=== PATIENT | male | born 1950 | race Caucasian/White ===

== ENCOUNTER 2018-03-17 10:14 | Inpatient (IN) ==
[2018-03-17] MEDS ORDERED: ACETAMINOPHEN 325 MG TABLET PO PRN (12:41)
[2018-03-17] MEDS ORDERED: MAGNESIUM SULF RIDER 2 GM in PREMIX 1 EACH IV PRN (12:41)
[2018-03-17] MEDS ORDERED: ONDANSETRON 4 MG/2 ML VIAL IV PRN (12:41)
[2018-03-17] MEDS ORDERED: ZALEPLON 5 MG CAPSULE PO PRN (12:41)
[2018-03-17] MEDS ORDERED: MORPHINE 4 MG/1 ML VIAL IV PRN (12:41)
[2018-03-17] MEDS ORDERED: DOCUSATE SODIUM 100 MG CAPSULE PO PRN (12:41)
[2018-03-17] MEDS ORDERED: MAGNESIUM SULF RIDER 4 GM in PREMIX 1 EACH IV PRN (12:41)
[2018-03-17] MEDS ORDERED: GLUCAGON 1 MG VIAL IM PRN (12:51)
[2018-03-17] MEDS ORDERED: DEXTROSE 50% 25 GM/50 ML VIAL IV PRN (12:51)
[2018-03-17 13:44] LABS: Basophils # 0.1 10*3/uL (0.0-0.2); Basophils % 0.4 % (0.0-0.8); Eosinophils # 0.3 10*3/uL (0.0-0.87); Eosinophils % 2.7 % (0.00-10.9); Hematocrit 40.6 VOL% (42.0-52.0); Hemoglobin 13.7 GM/DL (14.0-18.0); Immature Granulocytes % 0.4 %; Immature Granulocytes Absolute 0.05 #; Lymphocytes # 1.1 10*3/uL (1.4-4.0); Lymphocytes % 8.8 % (21.2-54.2); Mean Corpuscular HGB Conc 33.7 GM/DL (32-36); Mean Corpuscular Hemoglobin 31 PG (27-34); Mean Corpuscular Volume 93.1 FL (87-102); Mean Platelet Volume 10.4 FL (9.6-12.0); Monocytes # 0.7 10*3/uL (0.11-0.8); Monocytes % 6.2 % (1.7-12.7); Neutrophils # 9.7 10*3/uL (1.4-7.4); Neutrophils % 81.5 % (38.7-73.9); Platelet Count 212 T/CUMM (130-400); Red Blood Count 4.36 MC/CUMM (3.8-5.5); Red Cell Distribution Width 15.4 % (9.3-17.3)
[2018-03-17 14:17] LABS: Troponin I 0.135 NG/ML (0.00-0.045)
[2018-03-17 14:23] LABS: Albumin 2.6 G/DL (3.4-5.0); Bilirubin,Total 0.5 MG/DL (0.2-1.0); Calcium 9.3 MG/DL (8.5-10.1); Potassium 4.1 MMOL/L (3.5-5.1)
[2018-03-17] MEDS: INSULIN REGULAR 100 UNIT/ML SUBCUT SCH ×2 (16:35→21:26)
[2018-03-17] MEDS: ASPIRIN EC 81 MG TABLET PO SCH (16:35)
[2018-03-17 16:39] LABS: Troponin I 0.121 NG/ML (0.00-0.045)
[2018-03-17 20:14] LABS: Troponin I 0.092 NG/ML (0.00-0.045)
[2018-03-17 20:40] LABS: Apearance,Urine CLEAR (Clear); Bilirubin,Urine Negative (Negative); Blood, Urine Small mg/dL (Negative); Glucose,Urine (UA) Negative (Negative); Ketones,Urine Negative (Negative); Mucus,Urine Occasional /LPF (Occasional); Nitrite,Urine Negative (Negative); Protein,Urine 30 MG/DL; RBC,Urine 1 /HPF (0-4); Urine Color Yellow (Yellow); Urine Specific Gravity 1.008 (1.001-1.035); Urine Urobilinogen < 2.0 EU/DL (0.2-1.0); WBC,Urine 1 /HPF (0-6)
[2018-03-17] MEDS ORDERED: ENOXAPARIN 30 MG/0.3 ML SYRINGE SUBCUT SCH (21:00)
[2018-03-18 05:50] LABS: Basophils % 0.3 % (0.0-0.8); Eosinophils # 0.2 10*3/uL (0.0-0.87); Eosinophils % 1.5 % (0.00-10.9); Hematocrit 41.3 VOL% (42.0-52.0); Hemoglobin 13.9 GM/DL (14.0-18.0); Immature Granulocytes % 0.3 %; Immature Granulocytes Absolute 0.04 #; Lymphocytes # 0.9 10*3/uL (1.4-4.0); Lymphocytes % 7.3 % (21.2-54.2); Mean Corpuscular HGB Conc 33.7 GM/DL (32-36); Mean Corpuscular Hemoglobin 31 PG (27-34); Mean Platelet Volume 10.6 FL (9.6-12.0); Monocytes # 0.8 10*3/uL (0.11-0.8); Monocytes % 6.7 % (1.7-12.7); Neutrophils # 9.8 10*3/uL (1.4-7.4); Neutrophils % 83.9 % (38.7-73.9); Platelet Count 241 T/CUMM (130-400); Red Blood Count 4.44 MC/CUMM (3.8-5.5); Red Cell Distribution Width 15.4 % (9.3-17.3); White Blood Count 11.7 T/CUMM (4-12)
[2018-03-18 06:37] LABS: Immunoglobulin A (Chem) 120 MG/DL (70-400); Immunoglobulin G (Chem) 563 MG/DL (700-1600); Immunoglobulin M (Chem) 37 MG/DL (40-230)
[2018-03-18 06:40] LABS: Calcium 9.3 MG/DL (8.5-10.1); Osmolality,Calculated 308.2 MOS/KG (273-304); Potassium 3.4 MMOL/L (3.5-5.1)
[2018-03-18 07:03] LABS: Albumin 2.6 G/DL (3.4-5.0); Bilirubin,Total 1.2 MG/DL (0.2-1.0); Calcium 9.2 MG/DL (8.5-10.1); Total Protein 7.1 G/DL (6.4-8.3)
[2018-03-18 07:04] LABS: Osmolality,Calculated 310.1 MOS/KG (273-304); Potassium 3.4 MMOL/L (3.5-5.1); Risk Ratio 4.94; VLDL CHOLESTEROL 39.2 MG/DL
[2018-03-18] MEDS ORDERED: PANTOPRAZOLE 40 MG TABLET PO SCH (09:00)
[2018-03-18 09:26] LABS: Albumin (SPE) 3.8 G/DL (3.2-5.3); Alpha 1 (SPE) 0.4 G/DL (0.1-0.4); Alpha 1 (SPE) Rel % 5.8 %; Alpha 2 (SPE) 1.2 G/DL (0.4-1.0); Beta (SPE) Rel % 14.7 %; Gamma (SPE) 0.5 G/DL (0.7-1.7); Gamma (SPE) Rel % 7.5 %
[2018-03-18 09:42] LABS: Random Urine Protein (Bench) 52 MG/DL (<11.9)
[2018-03-18] MEDS ORDERED: ATORVASTATIN 20 MG TABLET PO SCH (10:30)
[2018-03-18] MEDS: INSULIN REGULAR 100 UNIT/ML SUBCUT SCH ×2 (10:52→12:53)
[2018-03-18] MEDS: ASPIRIN EC 81 MG TABLET PO SCH (10:54)
[2018-03-18 12:27] VITALS: BP 146/71
[2018-03-18] MEDS ORDERED: FUROSEMIDE 80 MG TABLET PO SCH (16:00)
[2018-03-18] MEDS ORDERED: DULoxetine 30 MG CAPSULE PO SCH (21:00)
[2018-03-18] MEDS ORDERED: ASCORBIC ACID 500 MG TABLET PO SCH (21:00)
[2018-03-19] MEDS ORDERED: TAMSULOSIN 0.4 MG CAPSULE PO SCH (08:00)
[2018-03-19] MEDS ORDERED: POTASSIUM CHLORIDE 10 MEQ TABLET PO SCH (09:00)
[2018-03-19] MEDS ORDERED: AMITRIPTYLINE 50 MG TABLET PO SCH (09:00)
[2018-03-19] MEDS ORDERED: metOLazone 5 MG TABLET PO SCH (09:00)
[2018-03-19] MEDS ORDERED: ISOSORBIDE MONONITRATE 30 MG TABLET PO SCH (09:00)
[2018-03-19] MEDS ORDERED: FINASTERIDE 5 MG TABLET PO SCH (09:00)
[2018-03-19] MEDS ORDERED: BIOTIN 5000 MCG PO SCH (09:00)
[2018-03-19] MEDS ORDERED: ALLOPURINOL 100 MG TABLET PO SCH (09:00)
[2018-03-19] MEDS ORDERED: SPIRONOLACTONE 25 MG TABLET PO SCH (09:00)
[2018-03-19] MEDS ORDERED: DOCUSATE SODIUM 100 MG CAPSULE PO SCH (09:00)
[2018-03-19] MEDS ORDERED: CARVEDILOL 12.5 MG TABLET PO SCH (09:00)
== END 2018-03-18 15:55 | disposition home or self-care (01) | DRG 683 ==
LOC: N.2W → N.TELES 13:41
PROVIDERS: ADMIT Internal Medicine Cardiovascular Disease; ATTEND Internal Medicine Cardiovascular Disease

== ENCOUNTER 2018-05-15 10:43 | Observation (INO) ==
[2018-05-15] MEDS ORDERED: FUROSEMIDE 100 MG/10 ML VIAL IV STA (11:16)
[2018-05-15 11:42] LABS: ABG Base Excess 7.7 MMOL/L (-2.5-2.5); ABG HCO3 31.5 MMOL/L (20-26); ABG Oxygen Saturation 96.9 % (95-100); ABG PCO2 36.5 MM HG (35-48); ABG PH 7.533 (7.35-7.45); ABG PO2 79.8 MM HG (80-95)
[2018-05-15 11:57] LABS: Basophils # 0.1 10*3/uL (0.0-0.2); Basophils % 0.4 % (0.0-0.8); Eosinophils # 0.3 10*3/uL (0.0-0.87); Eosinophils % 2.9 % (0.00-10.9); Hematocrit 37.7 VOL% (42.0-52.0); Hemoglobin 12.8 GM/DL (14.0-18.0); Immature Granulocytes Absolute 0.11 #; Lymphocytes # 1.6 10*3/uL (1.4-4.0); Lymphocytes % 13.9 % (21.2-54.2); Mean Corpuscular Hemoglobin 31 PG (27-34); Mean Corpuscular Volume 91.7 FL (87-102); Mean Platelet Volume 10.4 FL (9.6-12.0); Monocytes # 0.8 10*3/uL (0.11-0.8); Monocytes % 7.3 % (1.7-12.7); Neutrophils # 8.4 10*3/uL (1.4-7.4); Neutrophils % 74.5 % (38.7-73.9); Platelet Count 173 T/CUMM (130-400); Red Blood Count 4.11 MC/CUMM (3.8-5.5); Red Cell Distribution Width 15.9 % (9.3-17.3); White Blood Count 11.2 T/CUMM (4-12)
[2018-05-15 12:23] LABS: Albumin 3.1 G/DL (3.4-5.0); Bilirubin,Total 0.5 MG/DL (0.2-1.0); Calcium 9.2 MG/DL (8.5-10.1); Osmolality,Calculated 306.4 MOS/KG (273-304); Potassium 2.9 MMOL/L (3.5-5.1); Total Protein 6.7 G/DL (6.4-8.3)
[2018-05-15] MEDS ORDERED: DEXTROSE 50% 25 GM/50 ML SYRINGE IV ONE (12:26)
[2018-05-15] MEDS ORDERED: DEXTROSE 50% 25 GM/50 ML VIAL IV STA (12:33)
[2018-05-15 14:03] LABS: Apearance,Urine CLEAR (Clear); Bilirubin,Urine Negative (Negative); Blood, Urine Negative (Negative); Glucose,Urine (UA) Negative (Negative); Hyaline Casts,Urine 1 /LPF (0-3); Ketones,Urine Negative (Negative); Mucus,Urine Occasional /LPF (Occasional); Nitrite,Urine Negative (Negative); Protein,Urine 100 MG/DL; RBC,Urine 1 /HPF (0-4); Urine Color Yellow (Yellow); Urine Urobilinogen < 2.0 EU/DL (0.2-1.0); WBC,Urine <1 /HPF (0-6)
[2018-05-15] MEDS ORDERED: GLUCAGON 1 MG VIAL IM PRN (14:35)
[2018-05-15] MEDS ORDERED: ACETAMINOPHEN 325 MG TABLET PO PRN (14:35)
[2018-05-15] MEDS ORDERED: ONDANSETRON 4 MG/2 ML VIAL IV PRN (14:35)
[2018-05-15] MEDS ORDERED: DEXTROSE 50% 25 GM/50 ML VIAL IV PRN (14:35)
[2018-05-15] MEDS ORDERED: NITROGLYCERIN SL 0.4 MG TABLET SL PRN (14:39)
[2018-05-15] MEDS ORDERED: FUROSEMIDE 40 MG/4 ML VIAL IV ONE (14:39)
[2018-05-15] MEDS ORDERED: OFLOXACIN 0.3% OPH SOLN 10 ML BOTTLE RIGHT EYE SCH (17:00)
[2018-05-15] MEDS ORDERED: prednisoLONE ACETATE 1% OPH SUSP 5 ML BOTTLE RIGHT EYE SCH (17:00)
[2018-05-15] MEDS ORDERED: ATROPINE 1 % OPH SOLN 5 ML BOTTLE RIGHT EYE SCH (17:00)
[2018-05-15] MEDS: ENOXAPARIN 30 MG/0.3 ML SYRINGE SUBCUT SCH (17:05)
[2018-05-15] MEDS: INSULIN LISPRO 100 UNIT/ML SUBCUT SCH ×2 (17:25→21:03)
[2018-05-15] MEDS: AMITRIPTYLINE 50 MG TABLET PO SCH (18:03)
[2018-05-15] MEDS: metOLazone 5 MG TABLET PO SCH (18:03)
[2018-05-15] MEDS: TAMSULOSIN 0.4 MG CAPSULE PO SCH (18:03)
[2018-05-15] MEDS: ISOSORBIDE MONONITRATE 30 MG TABLET PO SCH (18:03)
[2018-05-15] MEDS: ALLOPURINOL 100 MG TABLET PO SCH (18:04)
[2018-05-15] MEDS: ASPIRIN EC 81 MG TABLET PO SCH (18:04)
[2018-05-15] MEDS: NITROGLYCERIN 2% OINT 1 INCH/GM PACK TOP SCH (18:05)
[2018-05-15] MEDS: CILOSTAZOL 50 MG TABLET PO SCH (21:00)
[2018-05-15] MEDS: POTASSIUM CHLORIDE 20 MEQ TABLET PO SCH (21:00)
[2018-05-15] MEDS: busPIRone 10 MG TABLET PO PRN (21:00)
[2018-05-15] MEDS: ASCORBIC ACID 500 MG TABLET PO SCH (21:00)
[2018-05-15] MEDS: CARVEDILOL 12.5 MG TABLET PO SCH (21:00)
[2018-05-15] MEDS: carBAMazepine 200 MG TABLET PO SCH (21:00)
[2018-05-15] MEDS: DOCUSATE SODIUM 100 MG CAPSULE PO SCH (21:01)
[2018-05-15 21:15] LABS: Troponin I 0.151 NG/ML (0.00-0.045)
[2018-05-16] MEDS: NITROGLYCERIN 2% OINT 1 INCH/GM PACK TOP SCH ×4 (00:18→18:02)
[2018-05-16] MEDS: INSULIN LISPRO 100 UNIT/ML SUBCUT SCH ×4 (07:48→20:42)
[2018-05-16] MEDS ORDERED: BIOTIN 5000 MCG PO SCH (09:00)
[2018-05-16] MEDS: ROSUVASTATIN 20 MG TABLET PO SCH (09:06)
[2018-05-16] MEDS: DOCUSATE SODIUM 100 MG CAPSULE PO SCH ×2 (09:06→20:40)
[2018-05-16] MEDS: CARVEDILOL 12.5 MG TABLET PO SCH (09:06)
[2018-05-16] MEDS: ASCORBIC ACID 500 MG TABLET PO SCH ×2 (09:06→20:40)
[2018-05-16] MEDS: POTASSIUM CHLORIDE 20 MEQ TABLET PO SCH ×2 (09:06→20:40)
[2018-05-16] MEDS: FINASTERIDE 5 MG TABLET PO SCH (09:06)
[2018-05-16] MEDS: FUROSEMIDE 40 MG/4 ML VIAL IV SCH ×2 (09:06→20:41)
[2018-05-16] MEDS: carBAMazepine 200 MG TABLET PO SCH ×2 (09:06→20:40)
[2018-05-16] MEDS: PANTOPRAZOLE 40 MG TABLET PO SCH (09:06)
[2018-05-16] MEDS: CILOSTAZOL 50 MG TABLET PO SCH ×2 (09:12→20:40)
[2018-05-16] MEDS: busPIRone 10 MG TABLET PO PRN (10:47)
[2018-05-16] MEDS: ENOXAPARIN 30 MG/0.3 ML SYRINGE SUBCUT SCH (16:04)
[2018-05-16] MEDS: TAMSULOSIN 0.4 MG CAPSULE PO SCH (16:05)
[2018-05-16] MEDS: ASPIRIN EC 81 MG TABLET PO SCH (18:01)
[2018-05-16] MEDS: ISOSORBIDE MONONITRATE 30 MG TABLET PO SCH (18:01)
[2018-05-16] MEDS: AMITRIPTYLINE 50 MG TABLET PO SCH (18:01)
[2018-05-16] MEDS: metOLazone 5 MG TABLET PO SCH (18:01)
[2018-05-16] MEDS: ALLOPURINOL 100 MG TABLET PO SCH (18:01)
[2018-05-16] MEDS: NEBIVOLOL 5 MG TABLET PO SCH (20:40)
[2018-05-16] MEDS: busPIRone 10 MG TABLET PO SCH (20:40)
[2018-05-16] MEDS: MORPHINE 4 MG/1 ML VIAL IV PRN (23:08)
[2018-05-17] MEDS: NITROGLYCERIN 2% OINT 1 INCH/GM PACK TOP SCH ×4 (00:16→17:57)
[2018-05-17] MEDS ORDERED: DEXTROSE 50% 25 GM/50 ML SYRINGE IV ONE (03:08)
[2018-05-17 05:19] LABS: Basophils % 0.3 % (0.0-0.8); Eosinophils # 0.3 10*3/uL (0.0-0.87); Eosinophils % 2.5 % (0.00-10.9); Hematocrit 35.4 VOL% (42.0-52.0); Hemoglobin 12.2 GM/DL (14.0-18.0); Immature Granulocytes % 0.5 %; Immature Granulocytes Absolute 0.06 #; Lymphocytes # 0.9 10*3/uL (1.4-4.0); Mean Corpuscular HGB Conc 34.5 GM/DL (32-36); Mean Corpuscular Hemoglobin 32 PG (27-34); Mean Corpuscular Volume 91.9 FL (87-102); Mean Platelet Volume 10.9 FL (9.6-12.0); Monocytes # 0.7 10*3/uL (0.11-0.8); Monocytes % 6.2 % (1.7-12.7); Neutrophils # 9.2 10*3/uL (1.4-7.4); Neutrophils % 82.5 % (38.7-73.9); Platelet Count 139 T/CUMM (130-400); Red Blood Count 3.85 MC/CUMM (3.8-5.5); Red Cell Distribution Width 15.9 % (9.3-17.3); White Blood Count 11.1 T/CUMM (4-12)
[2018-05-17 05:44] LABS: Albumin 2.8 G/DL (3.4-5.0); Bilirubin,Total 0.6 MG/DL (0.2-1.0); Calcium 8.8 MG/DL (8.5-10.1); Osmolality,Calculated 297.2 MOS/KG (273-304); Potassium 2.8 MMOL/L (3.5-5.1); Total Protein 6.7 G/DL (6.4-8.3)
[2018-05-17] MEDS ORDERED: POTASSIUM CHLORIDE RIDER 10 MEQ in PREMIX 1 EACH IV PRN (06:15)
[2018-05-17] MEDS: POTASSIUM CHLORIDE 20 MEQ TABLET PO PRN ×2 (06:36→12:43)
[2018-05-17] MEDS: carBAMazepine 200 MG TABLET PO SCH ×2 (09:24→21:40)
[2018-05-17] MEDS: ROSUVASTATIN 20 MG TABLET PO SCH (09:24)
[2018-05-17] MEDS: FINASTERIDE 5 MG TABLET PO SCH (09:25)
[2018-05-17] MEDS: CILOSTAZOL 50 MG TABLET PO SCH ×2 (09:25→21:40)
[2018-05-17] MEDS: busPIRone 10 MG TABLET PO SCH ×3 (09:25→21:41)
[2018-05-17] MEDS: NEBIVOLOL 5 MG TABLET PO SCH (09:25)
[2018-05-17] MEDS: POTASSIUM CHLORIDE 20 MEQ TABLET PO SCH ×2 (09:25→21:41)
[2018-05-17] MEDS: FUROSEMIDE 40 MG/4 ML VIAL IV SCH ×2 (09:25→21:42)
[2018-05-17] MEDS: DOCUSATE SODIUM 100 MG CAPSULE PO SCH ×2 (09:25→21:41)
[2018-05-17] MEDS: ASCORBIC ACID 500 MG TABLET PO SCH ×2 (09:25→21:45)
[2018-05-17] MEDS: PANTOPRAZOLE 40 MG TABLET PO SCH (09:25)
[2018-05-17] MEDS: INSULIN LISPRO 100 UNIT/ML SUBCUT SCH ×4 (09:26→21:41)
[2018-05-17] MEDS: ENOXAPARIN 30 MG/0.3 ML SYRINGE SUBCUT SCH (15:49)
[2018-05-17] MEDS: TAMSULOSIN 0.4 MG CAPSULE PO SCH (17:57)
[2018-05-17] MEDS: ASPIRIN EC 81 MG TABLET PO SCH (18:01)
[2018-05-17] MEDS: ALLOPURINOL 100 MG TABLET PO SCH (18:01)
[2018-05-17] MEDS: AMITRIPTYLINE 50 MG TABLET PO SCH (18:01)
[2018-05-17] MEDS: metOLazone 5 MG TABLET PO SCH (18:01)
[2018-05-17] MEDS: ISOSORBIDE MONONITRATE 30 MG TABLET PO SCH (18:05)
[2018-05-17] MEDS: MORPHINE 4 MG/1 ML VIAL IV PRN (21:44)
[2018-05-18] MEDS: NITROGLYCERIN 2% OINT 1 INCH/GM PACK TOP SCH ×3 (00:30→13:36)
[2018-05-18 04:11] LABS: Basophils % 0.4 % (0.0-0.8); Eosinophils # 0.4 10*3/uL (0.0-0.87); Hematocrit 36.8 VOL% (42.0-52.0); Hemoglobin 12.2 GM/DL (14.0-18.0); Immature Granulocytes Absolute 0.09 #; Lymphocytes # 1.1 10*3/uL (1.4-4.0); Lymphocytes % 12.6 % (21.2-54.2); Mean Corpuscular HGB Conc 33.2 GM/DL (32-36); Mean Corpuscular Hemoglobin 31 PG (27-34); Mean Corpuscular Volume 94.4 FL (87-102); Mean Platelet Volume 10.5 FL (9.6-12.0); Monocytes # 0.6 10*3/uL (0.11-0.8); Monocytes % 6.4 % (1.7-12.7); Neutrophils # 6.8 10*3/uL (1.4-7.4); Neutrophils % 75.6 % (38.7-73.9); Platelet Count 148 T/CUMM (130-400); Red Cell Distribution Width 16.2 % (9.3-17.3)
[2018-05-18 04:37] LABS: Calcium 8.9 MG/DL (8.5-10.1); Osmolality,Calculated 298.8 MOS/KG (273-304); Potassium 3.6 MMOL/L (3.5-5.1)
[2018-05-18] MEDS: INSULIN LISPRO 100 UNIT/ML SUBCUT SCH ×2 (09:29→12:14)
[2018-05-18] MEDS: ROSUVASTATIN 20 MG TABLET PO SCH (09:30)
[2018-05-18] MEDS: DOCUSATE SODIUM 100 MG CAPSULE PO SCH (09:30)
[2018-05-18] MEDS: carBAMazepine 200 MG TABLET PO SCH (09:30)
[2018-05-18] MEDS: FINASTERIDE 5 MG TABLET PO SCH (09:30)
[2018-05-18] MEDS: CILOSTAZOL 50 MG TABLET PO SCH (09:31)
[2018-05-18] MEDS: PANTOPRAZOLE 40 MG TABLET PO SCH (09:31)
[2018-05-18] MEDS: POTASSIUM CHLORIDE 20 MEQ TABLET PO SCH (09:31)
[2018-05-18] MEDS: NEBIVOLOL 5 MG TABLET PO SCH (09:31)
[2018-05-18] MEDS: busPIRone 10 MG TABLET PO SCH (09:32)
[2018-05-18] MEDS: ASCORBIC ACID 500 MG TABLET PO SCH (09:32)
[2018-05-18] MEDS: FUROSEMIDE 40 MG/4 ML VIAL IV SCH (10:55)
[2018-05-18 12:26] VITALS: BP 162/74
== END 2018-05-18 14:55 | disposition home or self-care (01) ==
LOC: N.EDINP 10:43 → N.ED 10:43 → N.TELEN 16:23
PROVIDERS: ADMIT Internal Medicine; ATTEND Internal Medicine

== ENCOUNTER 2018-08-25 10:02 | Inpatient (IN) ==
[2018-08-25] MEDS ORDERED: FUROSEMIDE 100 MG/10 ML VIAL IV STA (10:43)
[2018-08-25 10:56] LABS: Basophils # 0.1 10*3/uL (0.0-0.2); Basophils % 0.5 % (0.0-0.8); Eosinophils # 0.2 10*3/uL (0.0-0.87); Eosinophils % 1.9 % (0.00-10.9); Hematocrit 35.8 VOL% (42.0-52.0); Hemoglobin 10.9 GM/DL (14.0-18.0); Immature Granulocytes % 0.4 %; Immature Granulocytes Absolute 0.04 #; Lymphocytes # 0.8 10*3/uL (1.4-4.0); Lymphocytes % 7.6 % (21.2-54.2); Mean Corpuscular HGB Conc 30.4 GM/DL (32-36); Mean Corpuscular Hemoglobin 27 PG (27-34); Mean Corpuscular Volume 88.4 FL (87-102); Mean Platelet Volume 10.8 FL (9.6-12.0); Monocytes # 0.7 10*3/uL (0.11-0.8); Monocytes % 7.5 % (1.7-12.7); Neutrophils # 8.1 10*3/uL (1.4-7.4); Neutrophils % 82.1 % (38.7-73.9); Platelet Count 219 T/CUMM (130-400); Red Blood Count 4.05 MC/CUMM (3.8-5.5); Red Cell Distribution Width 16.2 % (9.3-17.3); White Blood Count 9.8 T/CUMM (4-12)
[2018-08-25 11:36] LABS: Albumin 2.7 G/DL (3.4-5.0); Bilirubin,Total 0.5 MG/DL (0.2-1.0); Calcium 9.4 MG/DL (8.5-10.1); Osmolality,Calculated 300.7 MOS/KG (273-304); Potassium 3.4 MMOL/L (3.5-5.1); Total Protein 7.4 G/DL (6.4-8.3)
[2018-08-25] MEDS ORDERED: NITROGLYCERIN SL 0.4 MG TABLET SL PRN (13:15)
[2018-08-25] MEDS ORDERED: MAGNESIUM SULF RIDER 4 GM in PREMIX 1 EACH IV PRN (14:06)
[2018-08-25] MEDS ORDERED: MAGNESIUM SULF RIDER 2 GM in PREMIX 1 EACH IV PRN (14:06)
[2018-08-25] MEDS ORDERED: INSULIN ASPART SUBCUT SCH (16:00)
[2018-08-25] MEDS ORDERED: FUROSEMIDE 100 MG/10 ML VIAL IV SCH (16:00)
[2018-08-25] MEDS: FUROSEMIDE 100 MG/10 ML VIAL IV SCH (17:04)
[2018-08-25] MEDS: POTASSIUM CHLORIDE 20 MEQ TABLET PO SCH (17:05)
[2018-08-25] MEDS: TAMSULOSIN 0.4 MG CAPSULE PO SCH (17:05)
[2018-08-25] MEDS: ALLOPURINOL 100 MG TABLET PO SCH (20:42)
[2018-08-25] MEDS: busPIRone 10 MG TABLET PO SCH (20:42)
[2018-08-25] MEDS: CILOSTAZOL 50 MG TABLET PO SCH (20:42)
[2018-08-25] MEDS: HydrOXYzine PAMOATE 25 MG CAPSULE PO PRN (20:42)
[2018-08-25] MEDS: carBAMazepine 200 MG TABLET PO SCH (20:42)
[2018-08-25] MEDS: ISOSORBIDE MONONITRATE 30 MG TABLET PO SCH (20:43)
[2018-08-25] MEDS: MELATONIN 3 MG TABLET PO SCH (20:43)
[2018-08-25] MEDS: AMITRIPTYLINE 25 MG TABLET PO SCH (20:43)
[2018-08-25] MEDS: DOCUSATE SODIUM 100 MG CAPSULE PO SCH (20:43)
[2018-08-26] MEDS: FUROSEMIDE 100 MG/10 ML VIAL IV SCH ×4 (00:44→17:07)
[2018-08-26 05:13] LABS: Basophils # 0.1 10*3/uL (0.0-0.2); Basophils % 0.5 % (0.0-0.8); Eosinophils # 0.4 10*3/uL (0.0-0.87); Eosinophils % 3.4 % (0.00-10.9); Hemoglobin 10.8 GM/DL (14.0-18.0); Immature Granulocytes % 0.3 %; Immature Granulocytes Absolute 0.03 #; Lymphocytes # 0.8 10*3/uL (1.4-4.0); Lymphocytes % 7.7 % (21.2-54.2); Mean Corpuscular Hemoglobin 27 PG (27-34); Mean Corpuscular Volume 88.7 FL (87-102); Mean Platelet Volume 10.8 FL (9.6-12.0); Monocytes % 8.7 % (1.7-12.7); Neutrophils # 8.7 10*3/uL (1.4-7.4); Neutrophils % 79.4 % (38.7-73.9); Platelet Count 237 T/CUMM (130-400); Red Blood Count 4.06 MC/CUMM (3.8-5.5); Red Cell Distribution Width 15.9 % (9.3-17.3)
[2018-08-26 05:25] LABS: INR 1.2; PT Patient Result 12.8 SECS; Partial Thromboplastin Time 33.1 SECS (0-40)
[2018-08-26 05:39] LABS: Calcium 9.3 MG/DL (8.5-10.1); Osmolality,Calculated 303.8 MOS/KG (273-304); Potassium 3.4 MMOL/L (3.5-5.1)
[2018-08-26 05:53] LABS: B-Type Natriuretic Peptide 654 PG/ML (2-100)
[2018-08-26 06:34] LABS: Hepatitis A Ab IgM Quant 0.13 Index; Hepatitis A Ab IgM Result Negative (Negative); Hepatitis B Core IgM Quant 0.33 Index; Hepatitis B Core IgM Result Negative (Negative); Hepatitis B Surface Ag Quant < 0.10 Index; Hepatitis B Surface Ag Result Negative (Negative); Hepatitis C Virus Ab Quant < 0.02 Index; Hepatitis C Virus Ab Result Negative (Negative)
[2018-08-26] MEDS ORDERED: ceFAZolin 1,000 MG in SYRINGE 1 EACH IV ONE (10:37)
[2018-08-26] MEDS: POTASSIUM CHLORIDE 20 MEQ TABLET PO SCH ×2 (11:26→17:05)
[2018-08-26] MEDS: busPIRone 10 MG TABLET PO SCH ×3 (11:26→20:41)
[2018-08-26] MEDS ORDERED: LIDOCAINE 1%/EPI INJ 20 ML VIAL ONE (11:38)
[2018-08-26] MEDS ORDERED: HEPARIN 5,000 UNIT/1 ML VIAL ONE (11:38)
[2018-08-26] MEDS ORDERED: DEXTROSE 50% 25 GM/50 ML SYRINGE IV ONE (11:53)
[2018-08-26] MEDS ORDERED: DEXTROSE 50% 25 GM/50 ML VIAL IV PRN (11:56)
[2018-08-26] MEDS ORDERED: DEXTROSE 50% 25 GM/50 ML SYRINGE IV PRN (12:30)
[2018-08-26] MEDS ORDERED: MIDAZOLAM 2 MG/2 ML VIAL ONE (13:59)
[2018-08-26] MEDS ORDERED: KETAMINE 500 MG/10 ML VIAL ONE (14:00)
[2018-08-26] MEDS ORDERED: HEPARIN 10,000 UNIT/10 ML VIAL IV PRN (14:57)
[2018-08-26] MEDS: carBAMazepine 200 MG TABLET PO SCH ×2 (15:44→20:42)
[2018-08-26] MEDS: CILOSTAZOL 50 MG TABLET PO SCH ×2 (15:44→20:41)
[2018-08-26] MEDS: FINASTERIDE 5 MG TABLET PO SCH (17:05)
[2018-08-26] MEDS: MONTELUKAST 10 MG TABLET PO SCH (17:05)
[2018-08-26] MEDS: TAMSULOSIN 0.4 MG CAPSULE PO SCH (17:06)
[2018-08-26] MEDS: metOLazone 5 MG TABLET PO SCH (17:06)
[2018-08-26] MEDS: ASPIRIN EC 81 MG TABLET PO SCH (17:06)
[2018-08-26] MEDS: NEBIVOLOL 5 MG TABLET PO SCH (17:06)
[2018-08-26] MEDS: SERTRALINE 25 MG TABLET PO SCH (17:06)
[2018-08-26] MEDS: ATORVASTATIN 40 MG TABLET PO SCH (17:06)
[2018-08-26] MEDS: ISOSORBIDE MONONITRATE 30 MG TABLET PO SCH (20:41)
[2018-08-26] MEDS: ALLOPURINOL 100 MG TABLET PO SCH (20:41)
[2018-08-26] MEDS: DOCUSATE SODIUM 100 MG CAPSULE PO SCH (20:41)
[2018-08-26] MEDS: AMITRIPTYLINE 25 MG TABLET PO SCH (20:42)
[2018-08-26] MEDS: MELATONIN 3 MG TABLET PO SCH (20:42)
[2018-08-26] MEDS: HydrOXYzine PAMOATE 25 MG CAPSULE PO PRN (20:42)
[2018-08-27 05:12] LABS: Basophils # 0.1 10*3/uL (0.0-0.2); Basophils % 0.5 % (0.0-0.8); Eosinophils # 0.3 10*3/uL (0.0-0.87); Eosinophils % 3.3 % (0.00-10.9); Hematocrit 37.2 VOL% (42.0-52.0); Hemoglobin 11.3 GM/DL (14.0-18.0); Immature Granulocytes % 0.5 %; Immature Granulocytes Absolute 0.05 #; Lymphocytes # 0.9 10*3/uL (1.4-4.0); Lymphocytes % 8.7 % (21.2-54.2); Mean Corpuscular HGB Conc 30.4 GM/DL (32-36); Mean Corpuscular Hemoglobin 27 PG (27-34); Mean Corpuscular Volume 88.4 FL (87-102); Mean Platelet Volume 10.4 FL (9.6-12.0); Monocytes # 0.9 10*3/uL (0.11-0.8); Monocytes % 8.2 % (1.7-12.7); Neutrophils # 8.2 10*3/uL (1.4-7.4); Neutrophils % 78.8 % (38.7-73.9); Platelet Count 272 T/CUMM (130-400); Red Blood Count 4.21 MC/CUMM (3.8-5.5); Red Cell Distribution Width 15.9 % (9.3-17.3); White Blood Count 10.4 T/CUMM (4-12)
[2018-08-27 05:29] LABS: Calcium 8.9 MG/DL (8.5-10.1); Osmolality,Calculated 296.2 MOS/KG (273-304); Potassium 3.4 MMOL/L (3.5-5.1)
[2018-08-27] MEDS ORDERED: HEPARIN 10,000 UNIT/10 ML VIAL IV SCH (07:00)
[2018-08-27] MEDS: metOLazone 5 MG TABLET PO SCH (08:15)
[2018-08-27] MEDS: POTASSIUM CHLORIDE 20 MEQ TABLET PO SCH ×2 (08:15→16:19)
[2018-08-27] MEDS: FINASTERIDE 5 MG TABLET PO SCH (08:15)
[2018-08-27] MEDS: busPIRone 10 MG TABLET PO SCH ×3 (08:15→20:54)
[2018-08-27] MEDS: ATORVASTATIN 40 MG TABLET PO SCH (08:15)
[2018-08-27] MEDS: NEBIVOLOL 5 MG TABLET PO SCH (08:16)
[2018-08-27] MEDS: ASPIRIN EC 81 MG TABLET PO SCH (08:16)
[2018-08-27] MEDS: MONTELUKAST 10 MG TABLET PO SCH (08:16)
[2018-08-27] MEDS: carBAMazepine 200 MG TABLET PO SCH ×2 (08:16→21:00)
[2018-08-27] MEDS: CILOSTAZOL 50 MG TABLET PO SCH ×2 (08:16→20:53)
[2018-08-27] MEDS: SERTRALINE 25 MG TABLET PO SCH (08:16)
[2018-08-27] MEDS: TAMSULOSIN 0.4 MG CAPSULE PO SCH (16:19)
[2018-08-27] MEDS: MELATONIN 3 MG TABLET PO SCH (20:53)
[2018-08-27] MEDS: ALLOPURINOL 100 MG TABLET PO SCH (20:54)
[2018-08-27] MEDS: AMITRIPTYLINE 25 MG TABLET PO SCH (20:54)
[2018-08-27] MEDS: ISOSORBIDE MONONITRATE 30 MG TABLET PO SCH (20:54)
[2018-08-27] MEDS: DOCUSATE SODIUM 100 MG CAPSULE PO SCH (20:54)
[2018-08-28 06:41] LABS: Basophils # 0.1 10*3/uL (0.0-0.2); Basophils % 0.7 % (0.0-0.8); Eosinophils # 0.4 10*3/uL (0.0-0.87); Eosinophils % 4.8 % (0.00-10.9); Hematocrit 35.8 VOL% (42.0-52.0); Hemoglobin 10.9 GM/DL (14.0-18.0); Immature Granulocytes % 0.5 %; Immature Granulocytes Absolute 0.04 #; Lymphocytes # 0.9 10*3/uL (1.4-4.0); Lymphocytes % 10.2 % (21.2-54.2); Mean Corpuscular HGB Conc 30.4 GM/DL (32-36); Mean Corpuscular Hemoglobin 27 PG (27-34); Mean Corpuscular Volume 87.7 FL (87-102); Mean Platelet Volume 10.4 FL (9.6-12.0); Monocytes # 0.8 10*3/uL (0.11-0.8); Neutrophils # 6.4 10*3/uL (1.4-7.4); Neutrophils % 74.8 % (38.7-73.9); Platelet Count 256 T/CUMM (130-400); Red Blood Count 4.08 MC/CUMM (3.8-5.5); Red Cell Distribution Width 15.7 % (9.3-17.3); White Blood Count 8.6 T/CUMM (4-12)
[2018-08-28 06:45] LABS: Calcium 8.8 MG/DL (8.5-10.1); Osmolality,Calculated 290.4 MOS/KG (273-304); Potassium 3.7 MMOL/L (3.5-5.1)
[2018-08-28] MEDS: CILOSTAZOL 50 MG TABLET PO SCH ×2 (08:32→21:09)
[2018-08-28] MEDS: NEBIVOLOL 5 MG TABLET PO SCH (08:32)
[2018-08-28] MEDS: ATORVASTATIN 40 MG TABLET PO SCH (08:32)
[2018-08-28] MEDS: FINASTERIDE 5 MG TABLET PO SCH (08:32)
[2018-08-28] MEDS: carBAMazepine 200 MG TABLET PO SCH ×2 (08:32→21:10)
[2018-08-28] MEDS: POTASSIUM CHLORIDE 20 MEQ TABLET PO SCH ×2 (08:33→17:45)
[2018-08-28] MEDS: SERTRALINE 25 MG TABLET PO SCH (08:33)
[2018-08-28] MEDS: ASPIRIN EC 81 MG TABLET PO SCH (08:33)
[2018-08-28] MEDS: metOLazone 5 MG TABLET PO SCH (08:33)
[2018-08-28] MEDS: busPIRone 10 MG TABLET PO SCH ×3 (08:33→21:11)
[2018-08-28] MEDS: MONTELUKAST 10 MG TABLET PO SCH (08:33)
[2018-08-28] MEDS: TAMSULOSIN 0.4 MG CAPSULE PO SCH (17:45)
[2018-08-28] MEDS: ALLOPURINOL 100 MG TABLET PO SCH (21:08)
[2018-08-28] MEDS: ISOSORBIDE MONONITRATE 30 MG TABLET PO SCH (21:08)
[2018-08-28] MEDS: HydrOXYzine PAMOATE 25 MG CAPSULE PO PRN (21:08)
[2018-08-28] MEDS: MELATONIN 3 MG TABLET PO SCH (21:09)
[2018-08-28] MEDS: DOCUSATE SODIUM 100 MG CAPSULE PO SCH (21:10)
[2018-08-28] MEDS: AMITRIPTYLINE 25 MG TABLET PO SCH (21:11)
[2018-08-29] MEDS: FINASTERIDE 5 MG TABLET PO SCH (09:44)
[2018-08-29] MEDS: POTASSIUM CHLORIDE 20 MEQ TABLET PO SCH ×2 (09:44→16:50)
[2018-08-29] MEDS: SERTRALINE 25 MG TABLET PO SCH (09:44)
[2018-08-29] MEDS: metOLazone 5 MG TABLET PO SCH (09:44)
[2018-08-29] MEDS: NEBIVOLOL 5 MG TABLET PO SCH (09:44)
[2018-08-29] MEDS: CILOSTAZOL 50 MG TABLET PO SCH ×2 (09:44→21:13)
[2018-08-29] MEDS: ATORVASTATIN 40 MG TABLET PO SCH (09:44)
[2018-08-29] MEDS: carBAMazepine 200 MG TABLET PO SCH ×2 (09:44→21:11)
[2018-08-29] MEDS: busPIRone 10 MG TABLET PO SCH ×3 (09:44→21:11)
[2018-08-29] MEDS: MONTELUKAST 10 MG TABLET PO SCH (09:44)
[2018-08-29] MEDS: ASPIRIN EC 81 MG TABLET PO SCH (09:44)
[2018-08-29] MEDS: ALBUTEROL 2.5 MG/3 ML NEB RESP TX PRN ×2 (13:37→21:28)
[2018-08-29] MEDS: TAMSULOSIN 0.4 MG CAPSULE PO SCH (16:50)
[2018-08-29] MEDS: MELATONIN 3 MG TABLET PO SCH (21:11)
[2018-08-29] MEDS: AMITRIPTYLINE 25 MG TABLET PO SCH (21:11)
[2018-08-29] MEDS: DOCUSATE SODIUM 100 MG CAPSULE PO SCH (21:11)
[2018-08-29] MEDS: ALLOPURINOL 100 MG TABLET PO SCH (21:11)
[2018-08-29] MEDS: ISOSORBIDE MONONITRATE 30 MG TABLET PO SCH (21:12)
[2018-08-29] MEDS: HydrOXYzine PAMOATE 25 MG CAPSULE PO PRN (21:16)
[2018-08-30 05:00] LABS: Basophils # 0.1 10*3/uL (0.0-0.2); Basophils % 0.8 % (0.0-0.8); Eosinophils # 0.6 10*3/uL (0.0-0.87); Eosinophils % 5.9 % (0.00-10.9); Hematocrit 38.7 VOL% (42.0-52.0); Hemoglobin 11.7 GM/DL (14.0-18.0); Immature Granulocytes % 0.4 %; Immature Granulocytes Absolute 0.04 #; Lymphocytes # 1.1 10*3/uL (1.4-4.0); Lymphocytes % 11.7 % (21.2-54.2); Mean Corpuscular HGB Conc 30.2 GM/DL (32-36); Mean Corpuscular Hemoglobin 27 PG (27-34); Mean Corpuscular Volume 87.6 FL (87-102); Mean Platelet Volume 10.3 FL (9.6-12.0); Monocytes # 0.7 10*3/uL (0.11-0.8); Monocytes % 6.9 % (1.7-12.7); Neutrophils # 7.1 10*3/uL (1.4-7.4); Neutrophils % 74.3 % (38.7-73.9); Platelet Count 278 T/CUMM (130-400); Red Blood Count 4.42 MC/CUMM (3.8-5.5); Red Cell Distribution Width 15.8 % (9.3-17.3); White Blood Count 9.5 T/CUMM (4-12)
[2018-08-30 05:23] LABS: Calcium 8.6 MG/DL (8.5-10.1); Osmolality,Calculated 289.7 MOS/KG (273-304)
[2018-08-30] MEDS: ALBUTEROL 2.5 MG/3 ML NEB RESP TX PRN ×2 (07:18→19:20)
[2018-08-30] MEDS: CILOSTAZOL 50 MG TABLET PO SCH ×2 (09:17→21:55)
[2018-08-30] MEDS: MONTELUKAST 10 MG TABLET PO SCH (09:17)
[2018-08-30] MEDS: busPIRone 10 MG TABLET PO SCH ×3 (09:17→21:56)
[2018-08-30] MEDS: metOLazone 5 MG TABLET PO SCH (09:17)
[2018-08-30] MEDS: carBAMazepine 200 MG TABLET PO SCH ×2 (09:17→21:56)
[2018-08-30] MEDS: FINASTERIDE 5 MG TABLET PO SCH (09:17)
[2018-08-30] MEDS: ATORVASTATIN 40 MG TABLET PO SCH (09:17)
[2018-08-30] MEDS: ASPIRIN EC 81 MG TABLET PO SCH (09:18)
[2018-08-30] MEDS: POTASSIUM CHLORIDE 20 MEQ TABLET PO SCH ×2 (09:18→16:14)
[2018-08-30] MEDS: SERTRALINE 25 MG TABLET PO SCH (09:18)
[2018-08-30] MEDS: NEBIVOLOL 5 MG TABLET PO SCH (09:18)
[2018-08-30] MEDS: TAMSULOSIN 0.4 MG CAPSULE PO SCH (16:15)
[2018-08-30] MEDS: ALLOPURINOL 100 MG TABLET PO SCH (21:55)
[2018-08-30] MEDS: MELATONIN 3 MG TABLET PO SCH (21:56)
[2018-08-30] MEDS: ISOSORBIDE MONONITRATE 30 MG TABLET PO SCH (21:56)
[2018-08-30] MEDS: AMITRIPTYLINE 25 MG TABLET PO SCH (21:56)
[2018-08-30] MEDS: DOCUSATE SODIUM 100 MG CAPSULE PO SCH (21:56)
[2018-08-30] MEDS: HydrOXYzine PAMOATE 25 MG CAPSULE PO PRN (21:59)
[2018-08-31 05:55] LABS: Basophils # 0.1 10*3/uL (0.0-0.2); Basophils % 0.7 % (0.0-0.8); Eosinophils # 0.6 10*3/uL (0.0-0.87); Eosinophils % 5.5 % (0.00-10.9); Hematocrit 38.1 VOL% (42.0-52.0); Hemoglobin 11.6 GM/DL (14.0-18.0); Immature Granulocytes % 0.4 %; Immature Granulocytes Absolute 0.04 #; Lymphocytes # 1.1 10*3/uL (1.4-4.0); Lymphocytes % 10.4 % (21.2-54.2); Mean Corpuscular HGB Conc 30.4 GM/DL (32-36); Mean Corpuscular Hemoglobin 27 PG (27-34); Mean Platelet Volume 9.7 FL (9.6-12.0); Monocytes # 0.6 10*3/uL (0.11-0.8); Monocytes % 6.4 % (1.7-12.7); Neutrophils # 7.7 10*3/uL (1.4-7.4); Neutrophils % 76.6 % (38.7-73.9); Platelet Count 296 T/CUMM (130-400); Red Blood Count 4.33 MC/CUMM (3.8-5.5); Red Cell Distribution Width 15.8 % (9.3-17.3); White Blood Count 10.1 T/CUMM (4-12)
[2018-08-31 06:24] LABS: Calcium 9.3 MG/DL (8.5-10.1); Osmolality,Calculated 288.5 MOS/KG (273-304)
[2018-08-31] MEDS: ALBUTEROL 2.5 MG/3 ML NEB RESP TX PRN (09:12)
[2018-08-31] MEDS: POTASSIUM CHLORIDE 20 MEQ TABLET PO SCH (09:40)
[2018-08-31] MEDS: CILOSTAZOL 50 MG TABLET PO SCH (09:40)
[2018-08-31] MEDS: FINASTERIDE 5 MG TABLET PO SCH (09:40)
[2018-08-31] MEDS: NEBIVOLOL 5 MG TABLET PO SCH (09:40)
[2018-08-31] MEDS: ATORVASTATIN 40 MG TABLET PO SCH (09:40)
[2018-08-31] MEDS: ASPIRIN EC 81 MG TABLET PO SCH (09:40)
[2018-08-31] MEDS: metOLazone 5 MG TABLET PO SCH (09:40)
[2018-08-31] MEDS: SERTRALINE 25 MG TABLET PO SCH (09:40)
[2018-08-31] MEDS: carBAMazepine 200 MG TABLET PO SCH (09:40)
[2018-08-31] MEDS: busPIRone 10 MG TABLET PO SCH (09:40)
[2018-08-31] MEDS: MONTELUKAST 10 MG TABLET PO SCH (09:40)
[2018-08-31 15:10] VITALS: BP 138/79
== END 2018-08-31 15:15 | disposition home or self-care (01) | DRG 291 ==
LOC: N.ED 10:02 → N.EDINP 11:49 → N.2E 13:19
PROVIDERS: ADMIT Internal Medicine; ATTEND Internal Medicine

== ENCOUNTER 2020-03-04 12:34 | Inpatient (IN) ==
[2020-03-04 13:32] LABS: Basophils # 0.1 10*3/uL (0.0-0.2); Basophils % 0.5 % (0.0-0.8); Eosinophils # 0.1 10*3/uL (0.0-0.87); Eosinophils % 0.7 % (0.00-10.9); Hematocrit 37.2 VOL% (42.0-52.0); Hemoglobin 12.7 GM/DL (14.0-18.0); Immature Granulocytes % 0.5 %; Immature Granulocytes Absolute 0.05 #; Lymphocytes # 2.4 10*3/uL (1.4-4.0); Lymphocytes % 22.3 % (21.2-54.2); Mean Corpuscular HGB Conc 34.1 GM/DL (32-36); Mean Corpuscular Volume 106.9 FL (87-102); Mean Platelet Volume 10.3 FL (9.6-12.0); Monocytes % 5.8 % (1.7-12.7); Neutrophils % 70.2 % (38.7-73.9); Platelet Count 138 T/CUMM (130-400); Red Blood Count 3.48 MC/CUMM (3.8-5.5); Red Cell Distribution Width 17.5 % (9.3-17.3)
[2020-03-04 13:38] LABS: Albumin 3.5 G/DL (3.4-5.0); Bilirubin,Total 0.6 MG/DL (0.2-1.0); Calcium 9.9 MG/DL (8.5-10.1); Osmolality,Calculated 283.9 MOS/KG (273-304); Total Protein 6.8 G/DL (6.4-8.3)
[2020-03-04] MEDS ORDERED: INSULIN REGULAR 100 UNIT/ML SUBCUT STA (13:40)
[2020-03-04 13:43] LABS: ABG Base Excess -2.5 MMOL/L (-2.5-2.5); ABG HCO3 22.4 MMOL/L (20-26); ABG Oxygen Saturation 99.6 % (95-100); ABG PCO2 38.9 MM HG (35-48); ABG TCO2 20.2 MMOL/L (23-27); Pt O2 Delivery Device Ventilator
[2020-03-04 13:45] LABS: Troponin I 0.159 NG/ML (0.00-0.045)
[2020-03-04] MEDS ORDERED: AMIODARONE INJ 150 MG in DEXTROSE 5% 100 ML IV ONE (14:13)
[2020-03-04] MEDS ORDERED: AMIODARONE INJ 450 MG in DEXTROSE 5% 241 ML IV SCH (14:30)
[2020-03-04] MEDS ORDERED: SODIUM BICARB INJ 100 MEQ in STERILE WATER INJ 1,000 ML IV SCH (14:30)
[2020-03-04] MEDS ORDERED: SODIUM BICARBONATE 50 MEQ/50 ML VIAL IV STA (14:30)
[2020-03-04] MEDS ORDERED: ONDANSETRON 4 MG/2 ML VIAL IV PRN (14:31)
[2020-03-04] MEDS ORDERED: ALBUTEROL 2.5 MG/3 ML NEB RESP TX PRN (14:31)
[2020-03-04] MEDS ORDERED: MIDAZOLAM 10 MG/2 ML VIAL ONE (15:02)
[2020-03-04] MEDS ORDERED: MIDAZOLAM 2 MG/2 ML VIAL IV ONE ×2 (15:10→15:35)
[2020-03-04] MEDS: PANTOPRAZOLE 40 MG VIAL IV SCH (16:00)
[2020-03-04] MEDS: PHENYLEPHRINE DRIP 40 MG/250 ML PREMIX IV SCH (17:20)
[2020-03-04] MEDS: MIDAZOLAM 100 MG in SODIUM CHLORIDE 0.9% 80 ML IV PRN (17:30)
[2020-03-04] MEDS: fentaNYL INJ 1,250 MCG in SODIUM CHLORIDE 0.9% 225 ML IV PRN (17:30)
[2020-03-04 17:32] LABS: CKMB % 6.3 %
[2020-03-04 17:33] LABS: Troponin I 0.814 NG/ML (0.00-0.045)
[2020-03-04 17:42] LABS: Calcium 9.8 MG/DL (8.5-10.1); Osmolality,Calculated 286.4 MOS/KG (273-304)
[2020-03-04 19:44] VITALS: BP 147/87
[2020-03-04] MEDS: INSULIN LISPRO 100 UNIT/ML SUBCUT SCH (21:28)
[2020-03-04] MEDS: ENOXAPARIN 30 MG/0.3 ML SYRINGE SUBCUT SCH (21:29)
[2020-03-04 21:55] LABS: CKMB % 5.5 %
[2020-03-04 21:58] LABS: Troponin I 1.93 NG/ML (0.00-0.045)
[2020-03-05] MEDS: PHENYLEPHRINE DRIP 40 MG/250 ML PREMIX IV SCH ×4 (00:43→16:04)
[2020-03-05] MEDS: INSULIN LISPRO 100 UNIT/ML SUBCUT SCH ×6 (00:44→20:35)
[2020-03-05] MEDS: AMIODARONE INJ 450 MG in DEXTROSE 5% 241 ML IV SCH ×3 (00:46→15:47)
[2020-03-05] MEDS: MIDAZOLAM 100 MG in SODIUM CHLORIDE 0.9% 80 ML IV PRN ×2 (00:56→09:01)
[2020-03-05 02:30] LABS: Basophils # 0.1 10*3/uL (0.0-0.2); Basophils % 0.5 % (0.0-0.8); Eosinophils # 0.1 10*3/uL (0.0-0.87); Eosinophils % 0.5 % (0.00-10.9); Hematocrit 32.8 VOL% (42.0-52.0); Hemoglobin 11.2 GM/DL (14.0-18.0); Immature Granulocytes % 0.4 %; Immature Granulocytes Absolute 0.04 #; Lymphocytes # 1.4 10*3/uL (1.4-4.0); Lymphocytes % 14.5 % (21.2-54.2); Mean Corpuscular HGB Conc 34.1 GM/DL (32-36); Mean Corpuscular Volume 108.6 FL (87-102); Mean Platelet Volume 9.8 FL (9.6-12.0); Monocytes % 7.3 % (1.7-12.7); NRBC # 0.02 10*3/uL; Neutrophils % 76.8 % (38.7-73.9); Platelet Count 165 T/CUMM (130-400); Red Blood Count 3.02 MC/CUMM (3.8-5.5); Red Cell Distribution Width 18.2 % (9.3-17.3); White Blood Count 9.9 T/CUMM (4-12)
[2020-03-05 02:58] LABS: Bilirubin,Total 0.6 MG/DL (0.2-1.0); Calcium 9.4 MG/DL (8.5-10.1); Osmolality,Calculated 282.1 MOS/KG (273-304); Risk Ratio 2.84; Thyroid Stimulating Hormone 1.08 uIU/ml (0.358-3.74); Total Protein 6.4 G/DL (6.4-8.3)
[2020-03-05 02:59] LABS: ABG Base Excess 4.5 MMOL/L (-2.5-2.5); ABG HCO3 28.4 MMOL/L (20-26); ABG Oxygen Saturation 98.4 % (95-100); ABG PCO2 50.3 MM HG (35-48); ABG PH 7.391 (7.35-7.45); ABG TCO2 27.1 MMOL/L (23-27); Allen Test Positive; Pt O2 Delivery Device Ventilator
[2020-03-05] MEDS ORDERED: DOBUTamine 500 MG/250 ML PREMIX IV PRN (03:30)
[2020-03-05] MEDS ORDERED: NOREPINEPHRINE 4 MG/4 ML VIAL IV ONE ×2 (05:44→05:48)
[2020-03-05] MEDS: NOREPINEPHRINE 8 MG in SODIUM CHLORIDE 0.9% 242 ML IV PRN ×2 (05:50→16:20)
[2020-03-05] MEDS: fentaNYL INJ 1,250 MCG in SODIUM CHLORIDE 0.9% 225 ML IV PRN (09:13)
[2020-03-05] MEDS: MORPHINE 4 MG/1 ML VIAL IV PRN ×2 (14:19→20:34)
[2020-03-05] MEDS: PANTOPRAZOLE 40 MG VIAL IV SCH (16:20)
[2020-03-05] MEDS: ENOXAPARIN 30 MG/0.3 ML SYRINGE SUBCUT SCH (20:36)
[2020-03-06] MEDS: INSULIN LISPRO 100 UNIT/ML SUBCUT SCH ×2 (00:52→05:00)
[2020-03-06 00:59] LABS: Albumin 2.9 G/DL (3.4-5.0); Bilirubin,Total 1.2 MG/DL (0.2-1.0); Osmolality,Calculated 293.2 MOS/KG (273-304); Total Protein 6.8 G/DL (6.4-8.3)
[2020-03-06 03:28] LABS: ABG HCO3 24.3 MMOL/L (20-26); ABG Oxygen Saturation 90.4 % (95-100); ABG PH 7.384 (7.35-7.45); ABG PO2 60.6 MM HG (80-95); ABG TCO2 22.4 MMOL/L (23-27)
[2020-03-06] MEDS: NOREPINEPHRINE 8 MG in SODIUM CHLORIDE 0.9% 242 ML IV PRN (04:32)
[2020-03-06 04:36] LABS: Basophils # 0.1 10*3/uL (0.0-0.2); Basophils % 0.7 % (0.0-0.8); Eosinophils # 0.1 10*3/uL (0.0-0.87); Hematocrit 37.1 VOL% (42.0-52.0); Hemoglobin 12.4 GM/DL (14.0-18.0); Immature Granulocytes % 0.4 %; Immature Granulocytes Absolute 0.06 #; Lymphocytes % 7.1 % (21.2-54.2); Mean Corpuscular HGB Conc 33.4 GM/DL (32-36); Mean Corpuscular Volume 110.4 FL (87-102); Mean Platelet Volume 10.3 FL (9.6-12.0); Monocytes % 10.6 % (1.7-12.7); Neutrophils % 80.2 % (38.7-73.9); Platelet Count 124 T/CUMM (130-400); Red Blood Count 3.36 MC/CUMM (3.8-5.5); Red Cell Distribution Width 17.8 % (9.3-17.3); White Blood Count 14.4 T/CUMM (4-12)
[2020-03-06] MEDS ORDERED: SODIUM BICARBONATE 50 MEQ/50 ML VIAL IV ONE ×2 (04:59→05:41)
[2020-03-06] MEDS ORDERED: CALCIUM CHLORIDE 1,000 MG/10 ML SYRINGE IV ONE ×3 (04:59→05:42)
[2020-03-06] MEDS ORDERED: AMIODARONE 150 MG/3 ML VIAL ONE ×3 (04:59→05:58)
[2020-03-06] MEDS ORDERED: EPINEPHrine 1 MG/10 ML SYRINGE ONE ×2 (04:59→05:41)
[2020-03-06 05:01] LABS: Hypochromasia 1+
[2020-03-06] MEDS ORDERED: fentaNYL INJ 1,250 MCG in SODIUM CHLORIDE 0.9% 225 ML IV PRN (05:24)
[2020-03-06] MEDS ORDERED: MIDAZOLAM 100 MG in SODIUM CHLORIDE 0.9% 80 ML IV PRN (05:24)
[2020-03-06] MEDS ORDERED: VECURONIUM 10 MG VIAL IV ONE ×3 (05:26→05:30)
[2020-03-06] MEDS ORDERED: ETOMIDATE 20 MG/10 ML VIAL IV ONE ×2 (05:29→05:30)
[2020-03-06] MEDS ORDERED: EPINEPHrine 1 MG/ML VIAL ONE (05:40)
[2020-03-06] MEDS ORDERED: LIDOCAINE 100 MG/5 ML SYRINGE ONE (05:41)
[2020-03-06 05:58] LABS: ABG Base Excess -1.4 MMOL/L (-2.5-2.5); ABG Oxygen Saturation 87.9 % (95-100); ABG PCO2 46.4 MM HG (35-48); ABG PH 7.335 (7.35-7.45); ABG PO2 59.8 MM HG (80-95); ABG TCO2 22.2 MMOL/L (23-27)
[2020-03-06 06:25] LABS: INR 1.4; Partial Thromboplastin Time 27.4 SECS (23.9-33.8)
[2020-03-06 06:49] LABS: Alanine Aminotransferase 168 U/L (16-61); Albumin 2.7 G/DL (3.4-5.0); Alkaline Phosphatase 95 U/L (45-117); Aspartate Amino Transferase 147 U/L (0-37); Blood Urea Nitrogen 57 MG/DL (7-18); Estimated Glom Filtration Rate 6 ML/MIN; Glucose 256 MG/DL (74-106); Osmolality,Calculated 297.8 MOS/KG (273-304); Total Protein 6.5 G/DL (6.4-8.3)
[2020-03-06 06:55] LABS: Calcium 14.6 MG/DL (8.5-10.1)
[2020-03-06] MEDS ORDERED: LIDOCAINE DRIP 2,000 MG/250 ML PREMIX IV SCH (07:30)
== END 2020-03-06 06:20 | disposition expired | DRG 640 ==
LOC: N.ED 12:34 → N.EDINP 14:31 → SUATTDRO 14:31 → N.ICU 14:51
PROVIDERS: ADMIT Internal Medicine; ATTEND Family Medicine